=== PATIENT | female | born 1950 | race Caucasian/White ===

== ENCOUNTER → 2019-02-11 15:07 | Outpatient (CLI) | payer MEDICARE, OTHER, SELFPAY ==
--- NOTE | 2019-02-11 | DI.MG.S_ITS ---
BILATERAL DIGITAL SCREENING MAMMOGRAM 3D/2D WITH CAD: 02/11/2019 CLINICAL: Routine screening. Comparison is made to exams dated: 07/27/2007 mammogram and 11/01/2005 mammogram - [facility]. There are scattered fibroglandular elements in both breasts. Current study was also evaluated with a Computer Aided Detection (CAD) system. No significant masses, calcifications, or other findings are seen in either breast. There has been no significant interval change. IMPRESSION: NEGATIVE There is no mammographic evidence of malignancy. A 1 year screening mammogram is recommended. This exam was interpreted at Station ID: [id number]. NOTE: For mammograms, a report in lay terms will be sent to the patient. Approximately 15% of breast malignancies will not be visualized mammographically. In the management of a palpable breast mass, a negative mammogram must not discourage biopsy of a clinically suspicious lesion. Electronically Signed By: Maxx mesa/juan antonio:02/12/2019 07:56:04 letter sent: Normal Exam ACR BI-RADS Category 1: Negative 3341F
== END ==
PROVIDERS: PCP Student in an Organized Health Care Education/Training Program; Visit Provider Student in an Organized Health Care Education/Training Program
DX: Z12.31 Encounter for screening mammogram for malignant neoplasm of breast (principal); M85.851 Other specified disorders of bone density and structure, right thigh; N95.8 Other specified menopausal and perimenopausal disorders
CPT/HCPCS: 77063; 77067; 77080

== ENCOUNTER → 2022-08-16 12:41 | Outpatient (CLI) | payer MEDICARE, OTHER, SELFPAY ==
--- NOTE | 2022-08-26 14:37 | DIAB.MNT ---
Initial Diabetes Medical Nutrition Therapy Assessment Name: Kera Bello Date: 08/16/22 Time: 105-215p Dx: Type II Diabetes Provider: Juve Kera presents for initial Dm visit with new dx of T2DM. Endorses FH of Dm with two brothers. States her main concern today is to understand nutrition recs and learn how to adequately read food labels. Additionally, she will be going to [place] at the end of October. Would like recs for traveling. Feels her main motivator currently is keeping up with her family on this trip. States she has been working on increasing veggies and decreasing carb intake. States her times of waking, sleeping and eating are variable. Eats q 5-6 hours. Tracking foods and nutrient info. Some high sodium options with convenience foods. Diet Recall: Meal: yogurt with eggs OR frozen breakfast burrito OR cereal 1.5c with 0.5c milk OR frozen breakfast bowl Meal: Thai stew from [employer] OR Black beans with meat OR [employer] chicken skewers with roasted veggies or salad Meal: PB on 6 tortilla +/- jam OR quiche OR ice cream OR pc of sunita OR nothing Beverages: 32oz water 30-40oz cans of sf soda Anthropometrics: Ht: 5' Wt: 235# reported Physical Activity: Treadmill starting this week 3 days per week for 15-20 min. Self-Monitoring Blood Glucose: None Diabetes Medications: Metformin 500mg BID Pertinent Labs: HgA1c 11.3% 06/2022 per referral Nutrition Rx: Carbohydrates: Daily:130g Meal:30-45g Snack:15g Nutrition Diagnosis: - Food and nutrition related knowledge deficit r/t new dx T2DM aeb hgA1c 11.3%, pt report, and diet recall - Excessive Na intake r/t convenience food items aeb diet recall Intervention: This participant was very receptive. Provided appropriate educational handouts. Discussed the following topics: Completed intake assessment. Discussed barriers to care. Pathophysiology of T2DM HgA1c, its correlation to blood glucose numbers, and rationale for goal Potential for SMBG Plate Method, impact of macronutrients on blood sugar, meal timing, carbohydrate counting, pairing macronutrients and spreading out carbohydrates for better blood glucose management Recommended servings for carbohydrates at meals and snacks Heart health nutrition: sodium intake Brainstormed appropriate options based on food preferences Role of physical activity Created SMART goals for patient self-care and success. Goals: Pair CHO with protein for meals/snacks Read food labels for net carbs Be mindful of Na intake Aim for 30-45g CHO at meals cont 3 days per week on treadmill Follow-up: JEREMI LAM follow-up in 3-4 weeks Lillian Chavez RDN, [place] Certified Diabetes Care and Mobile Lab Technician P: [phone] Thank you for this referral
== END ==
PROVIDERS: Absent Provider Student in an Organized Health Care Education/Training Program; Family Provider Student in an Organized Health Care Education/Training Program; PCP Student in an Organized Health Care Education/Training Program; Referring Provider Student in an Organized Health Care Education/Training Program; Visit Provider Student in an Organized Health Care Education/Training Program
DX: E11.65 Type 2 diabetes mellitus with hyperglycemia (principal); Z79.84 Long term (current) use of oral hypoglycemic drugs; Z71.3 Dietary counseling and surveillance
CPT/HCPCS: 97802

== ENCOUNTER → 2022-09-21 13:04 | Outpatient (CLI) | payer MEDICARE, OTHER, SELFPAY ==
--- NOTE | 2022-10-05 16:58 | DIAB.MNTFU ---
Follow-up Diabetes Medical Nutrition Therapy Assessment Name: Kera Bello Date: 09/21/22 Time: 110-215p Dx: Type II Diabetes Kera presents for DM follow-up. Back from [place] trip x 5 days and reports +3#. States she would like to brainstorm for [place] trip meal/snack choices. No change in sodium intake. Endorses frozen pot pie (avoiding crust). has cut out ice cream, with exception to a small bar q couple weeks. Found a low carb beverage she likes. Has been pairing CHO and pro and aiming for 30-45g CHO at meals. Anthropometrics: Ht: 5' Wt: 235-240# reported Physical Activity: Treadmill 1-2x per week, up to 3x Self-Monitoring Blood Glucose: None Diabetes Medications: Metformin 500mg BID Pertinent Labs: HgA1c 11.3% 06/2022 per referral Nutrition Rx: Carbohydrates: Daily:130g Meal:30-45g Snack:15g Nutrition Diagnosis: - Food and nutrition related knowledge deficit r/t new dx T2DM aeb hgA1c 11.3%, pt report, and diet recall - Excessive Na intake r/t convenience food items aeb diet recall Intervention: This participant was very receptive. Provided appropriate educational handouts. Discussed the following topics: SMBG benefits Sugar substitute nutrition Traveling nutrition/ eating on the go Eating out nutrition tips Snack ideas Strategies for increasing veggies on the go Heart health nutrition: sodium Physical activity plan and progress Created SMART goals for patient self-care and success. Goals: Pair CHO with protein for meals/snacks- met Read food labels for net carbs- in progress Be mindful of Na intake- in progress Aim for 30-45g CHO at meals- met cont 3 days per week on treadmill- improved Bring snacks when traveling - new Walk after meals- new Choose veggies at meals- new Follow-up: JEREMI LAM follow-up in 3-4 weeks Lillian Chavez RDN, [place]O[facility] Certified Diabetes Care and Solutions Development Analyst P: [phone] Thank you for this referral
== END ==
PROVIDERS: Family Provider Student in an Organized Health Care Education/Training Program; PCP Student in an Organized Health Care Education/Training Program; Referring Provider Student in an Organized Health Care Education/Training Program; Visit Provider Student in an Organized Health Care Education/Training Program
DX: E11.9 Type 2 diabetes mellitus without complications (principal); Z79.84 Long term (current) use of oral hypoglycemic drugs; Z71.3 Dietary counseling and surveillance
CPT/HCPCS: 97803

== ENCOUNTER 2023-05-24 07:36 | Day surgery (SDC) | payer MEDICARE, OTHER, SELFPAY ==
[2023-05-24 08:26] VITALS: BP 153/78; PULSE 96; RESP 16; TEMP 36.6; O2SAT 96; BMI 44.9
[2023-05-24] MEDS: LACTATED RINGERS 1,000 ML 42 ML IV (08:37)
--- NOTE | 2023-05-24 08:48 | PM.HP.1 ---
History of Present Illness History of Present Illness Date Patient Seen: 05/24/23 Time Patient Seen: 08:48 Chief complaint: Colonoscopy Narrative: Last colonoscopy was 15 yrs, polyps were found. No family history or concerning symptoms. [facility] Social History household members: none Smoking Status: Never smoker alcohol intake: current Meds Home Medications and Allergies Home Medications Medication Instructions Recorded Confirmed Type metformin 500 mg tablet 500 mg PO BID 05/24/23 05/24/23 History Allergies Allergy/AdvReac Type Severity Reaction Status Date / Time doxycycline Allergy Mild big rash Verified 05/24/23 08:08 Review of Systems Review of Systems ROS: Yes All systems reviewed with the patient and are negative except as otherwise documented Exam Vital Signs (past 8 hours): - 05/24/23 08:26 Temperature 97.8 F Pulse Rate 96 H Respiratory Rate 16 Blood Pressure 153/78 H Pulse Oximetry 96 Oxygen Delivery Method Room Air Oxygen Delivery Method Room Air Const General: cooperative and comfortable Nutritional Appearance: overweight HENMT Head: normocephalic and atraumatic Eyes General: appearance normal, both eyes and all related structures Sclera: sclerae normal Neck Neck: trachea midline and No JVD Resp Effort & Inspection: normal respiratory effort and able to speak in complete sentences Cardio Rate: regular rate Rhythm: regular rhythm GI Palpation: soft and No tender Skin General: turgor normal and atrophy Neuro General: patient alert, patient awake and patient oriented x3 Cognition: normal cognition Psych Appearance: grossly normal Mental Status: mental status grossly normal Affect: normal affect Judgment: judgment good Assessment & Plan Assessment & Plan narrative: History of colon polyps Plan: colonoscopy with anesthesia. Time Spent With Patient Time with patient: less than 30 minutes
[2023-05-24] MEDS: LIDOCAINE VISCOUS 2% 15 ML SOLUTION PO (09:03)
--- NOTE | 2023-05-24 09:07 | P.OP.COLON_ITS ---
Operative Date/Time/Diagnoses Date of procedure: 05/24/23 Time of procedure: 09:07 Pre-op diagnosis: History of colon polyps Post-op diagnosis: same Procedure & Clinicians Study performed: Colonoscopy with anesthesia Same procedure as scheduled: Yes Indications: History of colon polyps Surgeon: Avelina Wei Procedure Notes Procedure in detail: Preop diagnosis: History of colon polyps Postop diagnosis: Same Operative procedure: Colonoscopy with anesthesia Surgeon: Tasneem Wei MD Findings: Scant diverticulosis throughout the colon of small and moderate- sized. No polyps identified. Procedure: Patient placed in lateral position. Rectal exam performed showing normal tone. Hemorrhoidal tags. And skin ulceration likely due to preop and a acidity of diarrhea. Scope was inserted into the rectum and advanced to ileocecal valve with minimal difficulty. Insufflation extraction of the scope and the above findings including retroflex in the rectum. Impression: Diverticulosis of small to moderate size throughout the colon. No polyps Plan: Repeat colonoscopy in 10 years unless otherwise indicated by change in clinical condition Findings: divertiulosis Specimen(s): none sent Complications: none Post-procedure Recommendations: Colonoscopy in 10 years Follow up: as needed Disposition: PACU
[2023-05-24 09:10] VITALS: BP 115/66; PULSE 75; RESP 16; TEMP 37; O2SAT 96
[2023-05-24 09:14] VITALS: BP 130/56; PULSE 82; RESP 15; TEMP 36.9; O2SAT 97
[2023-05-24 09:20] VITALS: BP 133/56; PULSE 87; RESP 15; TEMP 36.9; O2SAT 97
[2023-05-24 09:29] VITALS: BP 132/79; PULSE 75; RESP 15; O2SAT 98
== END 2023-05-24 09:58 | disposition home or self-care (01) ==
PROVIDERS: Family Provider Student in an Organized Health Care Education/Training Program; PCP Student in an Organized Health Care Education/Training Program; Referring Provider Surgery; Visit Provider Surgery
PROC: 0DJD8ZZ Inspection of Lower Intestinal Tract, Via Natural or Artificial Opening Endoscopic (ICD-10-PCS; CPT 45378; principal; 2023-05-24 08:45)
DX: Z12.11 Encounter for screening for malignant neoplasm of colon (principal); Z86.010 Personal history of colon polyps; K57.30 Diverticulosis of large intestine without perforation or abscess without bleeding
CPT/HCPCS: G0105

== ENCOUNTER → 2023-06-26 08:18 | Outpatient (CLI) | payer MEDICARE, OTHER, SELFPAY ==
--- NOTE | 2023-06-26 08:20 | DI.MG.S_ITS ---
BILATERAL DIGITAL SCREENING MAMMOGRAM 3D/2D WITH CAD: 06/26/2023 CLINICAL: Routine screening. Comparison is made to exams dated: 02/11/2019 mammogram - [facility], 07/27/2007 mammogram, and 11/01/2005 mammogram - [facility]. There are scattered areas of fibroglandular density in both breasts (category b / 25%-50% glandular tissue). Current study was also evaluated with a Computer Aided Detection (CAD) system. There are benign calcifications in both breasts. No significant masses, calcifications, or other findings are seen in either breast. There has been no significant interval change. IMPRESSION: BENIGN There is no mammographic evidence of malignancy. A 1 year screening mammogram is recommended. Based on the Tyrer Cuzick model (a risk assessment model) the patient's lifetime risk is 6.2% and her 10 year risk is 3.9%. According to the ACR, ACS, and NCCN guidelines, an annual breast MRI exam along with mammogram is recommended if the patient's lifetime risk is 20% or greater. This exam was interpreted at Station ID: [id number]. NOTE: For mammograms, a report in lay terms will be sent to the patient. Approximately 15% of breast malignancies will not be visualized mammographically. In the management of a palpable breast mass, a negative mammogram must not discourage biopsy of a clinically suspicious lesion. Electronically Signed By: Collette boss/juan antonio:06/26/2023 13:30:33 letter sent: Normal Exam ACR BI-RADS Category 2: Benign Finding(s) 3342F
== END ==
PROVIDERS: Family Provider Student in an Organized Health Care Education/Training Program; PCP Student in an Organized Health Care Education/Training Program; Referring Provider Student in an Organized Health Care Education/Training Program; Visit Provider Student in an Organized Health Care Education/Training Program
DX: Z12.31 Encounter for screening mammogram for malignant neoplasm of breast (principal); R92.323 Mammographic fibroglandular density, bilateral breasts
CPT/HCPCS: 77063; 77067

== ENCOUNTER → 2023-07-14 10:12 | Outpatient (CLI) | payer MEDICARE, OTHER, SELFPAY ==
--- NOTE | 2023-07-14 10:14 | DI.US.S_ITS ---
PROCEDURE: US CAROTID DOPPLER BI INDICATIONS: HYPERLIPIDEMIA TECHNIQUE: Color and pulse Doppler interrogation was performed of both carotid systems, with image documentation and velocity measurements. COMPARISON: None. FINDINGS: Stenosis calculations are based on SRU (Society of Radiologists in Ultrasound) criteria. Right side: Brachial blood pressure: 156/77 mm Hg. Common carotid artery peak systolic velocity: 151 cm/sec. Internal carotid artery peak systolic velocity: 93 cm/sec. Internal carotid artery end diastolic velocity: 19 cm/sec. External carotid artery peak systolic velocity: 127 cm/sec. ICA/CCA peak systolic ratio: 0.6 . Gross scale imaging description: No visualized plaque. Percent internal carotid artery stenosis: No hemodynamically significant stenosis . Vertebral artery: Flow direction is antegrade. Left side: Brachial blood pressure: 162/78 mm Hg. Common carotid artery peak systolic velocity: 120 cm/sec. Internal carotid artery peak systolic velocity: 120 cm/sec. Internal carotid artery end diastolic velocity: 39 cm/sec. External carotid artery peak systolic velocity: 87 cm/sec. ICA/CCA peak systolic ratio: 1.0 . Gross scale imaging description: No appreciable plaque. Percent internal carotid artery stenosis: No hemodynamically significant stenosis. . Vertebral artery: Flow direction is antegrade. IMPRESSION: No hemodynamically significant stenosis within the internal carotid arteries bilaterally. Dictated by: Juanita Wang M.D. on 07/14/2023 at 16:19 Approved by: Juanita Wang M.D. on 07/14/2023 at 16:20
--- NOTE | 2023-07-14 10:14 | DI.RAD.S_ITS ---
Bone Density Report Name: TONY ORTIZ Age: 72 Sex: Female Ethnicity: White Date of : 1950 Indication: postmenopausal; screening for osteoporosis; Referring Provider: MELIZA LADD Study: Bone densitometry was performed. Exam Date: July 14, 2023 Accession number: [id number] Bone Density: Region BMD T-score Z-score Classification AP Spine(L1-L4) 0.939 -1.0 1.2 Normal Femoral Neck (Left) 0.619 -2.1 -0.2 Osteopenia Total Hip (Left) 0.924 -0.1 1.4 Normal Femoral Neck (Right) 0.585 -2.4 -0.5 Osteopenia Total Hip (Right) 0.884 -0.5 1.1 Normal Total Hip Mean 0.904 -0.3 1.3 Normal World Health Organization criteria for BMD impression classify patients as: Normal (T-score at or above -1.0), Osteopenia (T-score between -1.0 and -2.5), or Osteoporosis (T-score at or below -2.5). 10-year Fracture Risk(1): Major Osteoporotic Fracture 11% Hip Fracture 2.4% Reported Risk Factors: [place] (), Neck BMD=0.585, BMI=48.8 (1) FRAX(R) Version 3.08. Fracture probability calculated for an untreated patient. Fracture probability may be lower if the patient has received treatment. Previous Exams: -- Region Exam Age BMD T-score BMD Change BMD Change Date g/cm2 vs Baseline vs Previous -- AP Spine (L1-L4) 07/14/2023 72 0.939 -1.0 -0.099 (-9.5%)# -0.099 (-9.5%)# 02/11/2019 68 1.038 -0.1 Total Hip(Left) 07/14/2023 72 0.924 -0.1 0.086 (10.2%)# 0.086 (10.2%)# 02/11/2019 68 0.839 -0.8 Total Hip(Right) 07/14/2023 72 0.884 -0.5 0.038 (4.5%)# 0.038 (4.5%)# 02/11/2019 68 0.846 -0.8 -- *Denotes significance at 95% confidence level, LSC for AP Spine = 0.022 g/cm2, LSC for Total Hip = 0.027 g/cm2 # Denotes dissimilar scan types or analysis methods Impression: The patient has low bone mass, based on the Right Femoral Neck T-score. The patient has an estimated ten-year risk of hip fracture of 2.4% and an estimated ten-year risk of major fracture of 11%, based on the WHO FRAX algorithm. No significant bone loss was observed. Discussion: BONE DENSITY IS LOW AT ONE OR MORE SKELETAL SITES. This patient's lowest T-score is low at one or more skeletal sites. It meets the World Health Organization's (WHO) criteria for low bone mass (T-score between -1.0 and -2.5). The patient's 10-year risk of fracture as calculated by FRAX is less than the threshold where pharmacological therapy is recommended by the National Osteoporosis Foundation (NOF). However, all treatment decisions require clinical judgment and consideration of individual patient factors, including patient preferences, comorbidities, previous drug use, risk factors not captured in the FRAX model (e.g., frailty, falls, vitamin D deficiency, increased bone turnover, interval significant decline in bone density) and possible under or overestimation of fracture risk by FRAX. The patient should follow a healthful lifestyle (good nutrition with adequate calcium and vitamin D, and appropriate weight-bearing exercise). Follow-Up: Consider repeating this study in 2 to 3 years to reassess this patient's status, or sooner if there is some new clinical indication. Reported by: BALWINDER MOTLEY M.D. on 07/14/2023 11:22:00 AM.
== END ==
LOC: US 10:13
PROVIDERS: Family Provider Student in an Organized Health Care Education/Training Program; PCP Student in an Organized Health Care Education/Training Program; Referring Provider Student in an Organized Health Care Education/Training Program; Visit Provider Student in an Organized Health Care Education/Training Program
DX: Z78.0 Asymptomatic menopausal state (principal); E11.69 Type 2 diabetes mellitus with other specified complication; E78.5 Hyperlipidemia, unspecified; M85.851 Other specified disorders of bone density and structure, right thigh
CPT/HCPCS: 77080; 93880

== ENCOUNTER → 2024-05-24 15:01 | Outpatient (CLI) | payer MEDICARE, OTHER, SELFPAY ==
--- NOTE | 2024-05-30 15:59 | DIAB.MNT ---
Initial Diabetes Medical Nutrition Therapy Assessment Name: Kera Bello Date: 05/24/24 Time: 310-405p Dx: Type II Diabetes Provider: Maulik An Kera presents for DM visit, last RD visit was over one year ago in September 2022. States she has nutrition questions today and is interested in DM classes as she has not completed them in the past per report. Brought nutrition labels and recipes for review today. Working on increasing fiber intake since last labs indicated elevated cholesterol per report. Anthropometrics: Ht: 5' Wt: none today Physical Activity: Not discussed Self-Monitoring Blood Glucose: None Diabetes Medications: Metformin 500mg BID Pertinent Labs: HgA1c 11.3% 06/2022 per referral 7.2% 03/2024 reported Nutrition Rx: Carbohydrates: Daily:130g Meal:30-45g Snack:15g Nutrition Diagnosis: - Nutrition and food related knowledge deficit r/t needing more info on label reading and recipes for DM aeb pt report - new Intervention: This participant was very receptive. Provided appropriate educational handouts. Discussed the following topics: Recommended servings for carbohydrates at meals and snacks Heart health nutrition: types of fat and fiber Recipe recs and review Label reading Fruit recs, portions and pairing with pro Brainstormed appropriate meal/snack ideas based on food preferences Created SMART goals for patient self-care and success. Goals: Pair fruit and protein Try homemade santizo titorito Follow-up: JEREMI LAM follow-up for Dm ed classes in May and then 1:1 thereafter Lillian Chavez RDN, CAROLE Certified Diabetes Care and Informatica P: [phone] Thank you for this referral
== END ==
PROVIDERS: Family Provider Student in an Organized Health Care Education/Training Program; PCP Student in an Organized Health Care Education/Training Program
DX: E11.9 Type 2 diabetes mellitus without complications (principal); Z79.84 Long term (current) use of oral hypoglycemic drugs; Z71.3 Dietary counseling and surveillance
CPT/HCPCS: 97802

== ENCOUNTER → 2024-06-04 09:25 | Outpatient (CLI) | payer MEDICARE, OTHER, SELFPAY ==
--- NOTE | 2024-06-07 17:48 | DIAB.FU ---
Diabetes Education Class Series: Diabetes Physiology and Medications Name: Kera Bello Date: 06/04/23 Time: 9:35-11:40a Kayce presents for initial 1 of 3 DSME classes. Reports incorporating plant proteins. She is conscious of CHO portions. Class topics covered: ? Diabetes pathophysiology ? Discuss different types of diabetes ? Review criteria for diagnosing diabetes ? Review HgA1c measurement and associated blood sugars ? Review blood sugar monitoring safety, technique, and goals ? Discuss ways to reduce complications associated with diabetes, includes microvascular and macrovascular complications ? Review diabetes medications types, action, and side effects ? Health care visits recommended for people with T2DM ? Immunization recommended for people with T2DM ? SMART goals review Goal Set: Check FBG daily Follow-up: Diabetes Lifestyle and Ongoing Support Class next week Lillian Chavez RDN, [facility] Certified Diabetes Care and Guide Escort P: [phone] Thank you for this referral
== END ==
PROVIDERS: Family Provider Student in an Organized Health Care Education/Training Program; PCP Student in an Organized Health Care Education/Training Program; Referring Provider Student in an Organized Health Care Education/Training Program
DX: E11.9 Type 2 diabetes mellitus without complications (principal); Z71.3 Dietary counseling and surveillance
CPT/HCPCS: G0109

== ENCOUNTER → 2024-06-11 09:17 | Outpatient (CLI) | payer MEDICARE, OTHER, SELFPAY ==
--- NOTE | 2024-06-26 11:19 | DIAB.FU ---
Diabetes Education Class Series: Diabetes Physiology and Medications Name: Kera Bello Date: 06/11/2024 Time: 930-11a Kayce presents for class 2 of 3. Will be out of town for class next week. Reports working on diet changes. Still in progress with FBG checks. Class topics covered: ? Diabetes pathophysiology ? Discuss different types of diabetes ? Review criteria for diagnosing diabetes ? Review HgA1c measurement and associated blood sugars ? Review blood sugar monitoring safety, technique, and goals ? Discuss ways to reduce complications associated with diabetes, includes microvascular and macrovascular complications ? Review diabetes medications types, action, and side effects ? Health care visits recommended for people with T2DM ? Immunization recommended for people with T2DM ? SMART goals review Follow-up: 1:1 follow-up in 3-4 weeks recommended or upon return from trip. Lillian Chavez RDN, [facility] Registered Dietitian, Certified Diabetes Care and Manager Competitive Intelligence [phone] [email or web address]
== END ==
PROVIDERS: Family Provider Student in an Organized Health Care Education/Training Program; PCP Student in an Organized Health Care Education/Training Program; Referring Provider Student in an Organized Health Care Education/Training Program
DX: E11.9 Type 2 diabetes mellitus without complications (principal); Z71.3 Dietary counseling and surveillance; Z79.84 Long term (current) use of oral hypoglycemic drugs
CPT/HCPCS: G0109

== ENCOUNTER → 2024-07-23 14:53 | Outpatient (CLI) | payer MEDICARE, OTHER, SELFPAY ==
--- NOTE | 2024-07-23 15:02 | DIAB.MNTFU ---
Follow-up Diabetes Medical Nutrition Therapy Assessment Name: Kera Bello Date: 07/23/24 Time:3-345p Dx: Type II Diabetes Provider: Maulik An Kera presents for follow-up visit. Noticed BG down during her vacation to [place] in May, which may have been from more movement and no HS snack. During trip had sandwich at lunch or less bread with sandwich. Noticed higher FBg after comfort foods at dinner. If having fruit, pairs with protein. Plans to start making her own yogurt Feels she could eat more veggies. Diet Recall: Wakes: 12p 1-130p: All brand buds x 4 spoons (maybe 1/4c) with peaches, and yogurt 6p: santizo and cheese burrito OR chx baked 12a: santizo and cheese burrito OR chili mac and cheese OR spaghetti OR potatoes and spaghetti meat sauce. snacks: trailmix with nuts and m&m OR Aussie mini bites (2) diet pepsi x 12oz x 4+ water 8oz x2 2-4a bedtime Recent PCP visit Anthropometrics: Ht: 5' Wt: none today Physical Activity: States she promised PCP she would start walking on treadmill. Self-Monitoring Blood Glucose: Over the last 40 days had about 23 days over 130 ranging from 131-164mg/dl. Checking FBG daily. Recent FB 131 144 145 142 146 164 138 159 151 152 143 Diabetes Medications: Metformin 500mg BID Pertinent Labs: HgA1c 11.3% 06/2022 per referral 7.2% 03/2024 reported 7.2% 06/2024 reported Nutrition Rx: Carbohydrates: Daily:130g Meal:30-45g Snack:15g Nutrition Diagnosis: - Nutrition and food related knowledge deficit r/t needing more info on label reading and recipes for DM aeb pt report - in progress - Predicated inadequate fiber intake r/t limited whole grains and veggies aeb diet recall- new - Predicted excessive CHO intake r/t preparing more comfort foods lately aeb pt report- new Intervention: This participant was very receptive. Provided appropriate educational handouts. Discussed the following topics: Recommended servings for carbohydrates at meals and snacks Strategies for increasing veggie intake Rec fluid intake BG goals and strategies Physical activity Created SMART goals for patient self-care and success. Goals: Pair fruit and protein - met Try homemade santizo burrito- not met Check FBG - met Try protein and salad 3-4 days per week- new Try protein and santizo salad - new Start roasting veggies- new Start treadmill every other day- new Follow-up: JEREMI LAM follow-up in 3-4 weeks Lillian Chavez RDN, CAROLE Certified Diabetes Care and Eligibility And Occupancy Interviewer P: [phone] Thank you for this referral
== END ==
PROVIDERS: Family Provider Student in an Organized Health Care Education/Training Program; PCP Student in an Organized Health Care Education/Training Program; Referring Provider Student in an Organized Health Care Education/Training Program
DX: E11.9 Type 2 diabetes mellitus without complications (principal); Z71.3 Dietary counseling and surveillance; Z79.84 Long term (current) use of oral hypoglycemic drugs
CPT/HCPCS: 97803

== ENCOUNTER → 2024-08-05 11:08 | Outpatient (CLI) | payer MEDICARE, OTHER, SELFPAY ==
--- NOTE | 2024-08-05 11:10 | DI.MG.S_ITS ---
MM screening mammo BI: 08/05/2024. BI-RADS: 1 CLINICAL: 73-year old female for bilateral screening mammogram. Tyrer-Cuzick lifetime risk of 5.4%. No personal or first-degree family history of breast cancer. PRIOR EXAMS 06/26/2023, 02/11/2019. MAMMOGRAPHY TECHNIQUE: 2D and 3D (tomosynthesis) digital mammographic views obtained, with additional images as needed for full coverage. Current study was also evaluated with a Computer Aided Detection (CAD) system. DENSITY B. There are scattered areas of fibroglandular density. MAMMOGRAPHY FINDINGS Bilateral: No suspicious mass, asymmetry, microcalcification, or other abnormality seen. IMPRESSION: * No evidence of malignancy. RECOMMENDATIONS Bilateral * Annual screening mammography. OVERALL ASSESSMENT CATEGORY BI-RADS-1: Negative. The [employer] recommends annual screening mammography beginning at age 40 for women with average risk of breast cancer. ELECTRONICALLY SIGNED: Dany Tse M.D. on 08/05/2024 at 05:17:58 PM PT Interpreting Station ID: [id number]
== END ==
PROVIDERS: Family Provider Student in an Organized Health Care Education/Training Program; PCP Student in an Organized Health Care Education/Training Program; Referring Provider Student in an Organized Health Care Education/Training Program; Visit Provider Student in an Organized Health Care Education/Training Program
DX: Z12.31 Encounter for screening mammogram for malignant neoplasm of breast (principal)
CPT/HCPCS: 77063; 77067